=== PATIENT | male | born 1985 | race Caucasian/White ===

== ENCOUNTER 2016-05-19 07:35 | Emergency (ER) | payer BC ==
[2016-05-19 08:01] VITALS: BP 130/69
--- NOTE | 2016-05-19 08:11 | UC ---
FLU HPI - HPI Summary HPI Summary: 30 M presents with epigastric pain for a day. He had a GI bug as he describes since . He woke up last night with epigastric pain. He tried to vomit to make it better but there was no improvement. He also admits to diarrhea. He is very anxious on exam. He has no family history of cardiac disease. He has no medical conditions. He is a smoker. - History of Current Complaint Chief Complaint: UCGeneralIllness Stated Complaint: VOMITING/DIARRHEA Time Seen by Provider: 05/19/16 08:04 - Allergy/Home Medications Allergies/Adverse Reactions: Allergies Allergy/AdvReac Type Severity Reaction Status Date / Time Amoxicillin Allergy Severe Hives Verified 05/19/16 08:01 Penicillins Allergy Severe Hives Verified 05/19/16 08:01 PMH/Surg Hx/FS Hx/Imm Hx Endocrine History Of: Denies: Diabetes, Thyroid Disease Cardiovascular History Of: Denies: Cardiac Disorders, Hypertension Respiratory History Of: Denies: COPD, Asthma GI/ History Of: Denies: Ulcer - Surgical History Surgical History: Yes Surgery Procedure, Year, and Place: left leg reconstruction 2009, back surgery - Family History Known Family History: Negative: Cardiac Disease - Social History Alcohol Use: Weekly Substance Use Type: Marijuana Substance Use Comment - Amount & Last Used: occ usage Smoking Status (MU): Heavy Every Day Tobacco Smoker Type: Cigarettes Amount Used/How Often: 1 PPD Length of Time of Smoking/Using Tobacco: since age 19 Have You Smoked in the Last Year: Yes - Immunization History Most Recent Tetanus Shot: 2008 Review of Systems Constitutional: Negative ENT: Negative Respiratory: Negative Cardiovascular: Negative Gastrointestinal: Abdominal Pain - epigastric All Other Systems Reviewed And Are Negative: Yes Physical Exam Triage Information Reviewed: Yes Appearance: Well-Appearing - anxious Vital Signs: Initial Vital Signs Temp 98.4 F 05/19/16 07:54 Pulse 82 05/19/16 07:54 Resp 24 05/19/16 07:54 BP 130/69 05/19/16 07:54 Pulse Ox 100 05/19/16 07:54 Vital Signs Reviewed: Yes ENT: Positive: Normal ENT inspection, Pharynx normal, TMs normal Neck: Positive: Supple, Nontender, No Lymphadenopathy Respiratory: Positive: Chest non-tender, Lungs clear, Normal breath sounds Cardiovascular: Positive: RRR Abdomen Description: Positive: Soft, Other: - mild epigastric tenderness and to LUQ, no rebound tenderness, neg worley Bowel Sounds: Positive: Present Psychological: Positive: Other: - anxious Diagnostics - EKG Cardiac Rate: NL Cardiac Rhythm: Sinus: Normal Ectopy: None ST Segment: Normal Flu Course/Dx - Course Course Of Treatment: 30 M presents with epigastric pain since last night. has been vomiting due to "GI bug", pain is located more to left upper quadrant and neg worley so do not suspect gallbladder disease, patient is anxious on exam, EKG normal and only risk factor has is smoking. I reassuranced him that unlikely to be cardiac related pain. no blood in stool so do not suspect PUD, explained likely gastritis due to vomiting, offered medicaiton for vomiting and acid suppression but patient declined, patient understands and agrees with plan - Differential Dx/Diagnosis Differential Diagnosis/HQI/PQRI: Upper Respiratory Infection, Other - gall bladder disease, PUD, cardiac Provider Diagnoses: epigastric pain Discharge - Discharge Plan Condition: Good Disposition: HOME Patient Education Materials: Epigastric Pain (ED) Forms: *Work Release Referrals: No Primary Care Phys,NOPCP [Primary Care Provider] - [facility] [place] PHYSICIAN REFERRAL [Outside] Additional Instructions: Use tums for upset stomach Can use Tylenol every 6 hours for pain Establish care with primary care physician Return to ED if develop any new or worsening symptoms
[2016-05-19] MEDS ORDERED: Al Hydrox/Mg Hydrox/Simet LIQ* 30 ML UDC PO ONE (08:13)
[2016-05-19] MEDS ORDERED: Lidocaine 2% VISCOUS* 15 ML UDC PO ONE (08:13)
== END 2016-05-19 08:44 | disposition home or self-care (01) ==
LOC: UCEAST 07:35
DX: R10.13 Epigastric pain (principal); R19.7 Diarrhea, unspecified; Z88.0 Allergy status to penicillin; F12.90 Cannabis use, unspecified, uncomplicated; F17.210 Nicotine dependence, cigarettes, uncomplicated
CPT/HCPCS: 93005; 99212; A9270-GY; G0463

== ENCOUNTER 2017-07-28 04:06 | Emergency (ER) | payer BC ==
[2017-07-28] MEDS ORDERED: Morphine INJ* 4 MG/ML 1 ML CARPUJECT IV ONE (04:27)
[2017-07-28] MEDS ORDERED: Metoclopramide IV* 5 MG/ML 2 ML VIAL IV ONE (04:27)
[2017-07-28] MEDS ORDERED: Morphine INJ* 2 MG/ML 1 ML CARPUJECT ONE (04:48)
[2017-07-28] MEDS: NS 0.9% 1000 ML* 2,000 ML IV ONE ×2 (04:52→05:50)
[2017-07-28 05:07] LABS: Hematocrit 45 % (42-52); Hemoglobin 15.7 g/dl (14.0-18.0); Mean Corpuscular HGB Conc 35 g/dl (31-36); Mean Corpuscular Hemoglobin 31 pg (27-31); Mean Corpuscular Volume 88 fL (80-94); Mean Platelet Volume 9.8 um3 (7.4-10.4); Platelet Count 207 10^3/ul (150-450); Red Blood Count 5.11 10^6/ul (4.0-5.4); Red Cell Distribution Width 13 % (10.5-15); White Blood Count 10.3 10^3/ul (3.5-10.8)
[2017-07-28 05:08] LABS: ABS Basophils 0.1 10^3/ul (0-0.2); ABS Eosinophils 0.1 10^3/ul (0-0.6); ABS Lymphocytes 1.7 10^3/ul (1.0-4.8); ABS Monocytes 0.7 10^3/ul (0-0.8); ABS Neutrophils 7.7 10^3/ul (1.5-7.7)
[2017-07-28 05:10] LABS: EGFR Non-African American 97.3 (>60)
[2017-07-28] MEDS ORDERED: Potassium Chlor TAB* 20 MEQ TAB.ER PO ONE (05:19)
--- NOTE | 2017-07-28 05:53 | ED ---
Leander Verdugo Stephanie, scribed for Shelley Peralta MD on 07/28/17 at 0437 . Abdominal Pain/Male - HPI Summary HPI Summary: The pt is a 31 y/o M presenting to the ED with c/o abd pain that began at 23:30 tonight. Symptoms include N/V/D and diaphoresis. The pt states he has had an illness go through his house for the past week. He states the diarrhea began on 07/26/17 and is still present. - History of Current Complaint Chief Complaint: EDNauseaVomitDiarrh Stated Complaint: VOMITING Time Seen by Provider: 07/28/17 04:12 Hx Obtained From: Patient Onset/Duration: Gradual Onset, Lasting Days, Still Present Timing: Constant Severity Currently: Moderate Pain Intensity: 8 Pain Scale Used: 0-10 Numeric Location: Diffuse Radiates: No Aggravating Factor(s): Nothing Alleviating Factor(s): Nothing Associated Signs And Symptoms: Positive: Diaphoresis, Nausea, Vomiting, Diarrhea - Allergies/Home Medications Allergies/Adverse Reactions: Allergies Allergy/AdvReac Type Severity Reaction Status Date / Time MS Amoxicillin [Amoxicillin] Allergy Severe Hives Verified 07/28/17 04:51 MS Penicillins [Penicillins] Allergy Severe Hives Verified 07/28/17 04:51 PMH/Surg Hx/FS Hx/Imm Hx Endocrine/Hematology History: Denies: Hx Diabetes, Hx Thyroid Disease Cardiovascular History: Denies: Hx Hypertension Respiratory History: Denies: Hx Asthma, Hx Chronic Obstructive Pulmonary Disease (COPD) GI History: Denies: Hx Ulcer Sensory History: Denies: Hx Legally Blind EENT History: Denies: Hx Deafness - Surgical History Surgery Procedure, Year, and Place: left leg reconstruction 2009, back surgery Infectious Disease History: No Infectious Disease History: Denies: Hx Hepatitis, Hx Human Immunodeficiency Virus (HIV), Traveled Outside the [place] in Last 30 Days - Family History Known Family History: Negative: Cardiac Disease - Social History Occupation: Employed Part-time Lives: With Family Alcohol Use: Weekly Hx Substance Use: Yes Substance Use Type: Reports: Marijuana Substance Use Comment - Amount & Last Used: occ usage Hx Tobacco Use: Yes Smoking Status (MU): Heavy Every Day Tobacco Smoker Type: Cigarettes Amount Used/How Often: 1 PPD Length of Time of Smoking/Using Tobacco: since age 19 Have You Smoked in the Last Year: Yes Review of Systems Negative: Fever Positive: Abdominal Pain, Vomiting, Diarrhea Negative: Slurred Speech All Other Systems Reviewed And Are Negative: Yes Physical Exam - Summary Physical Exam Summary: VITAL SIGNS: Reviewed. GENERAL: Patient is a well-developed and nourished MALE who is lying comfortable in the stretcher. Patient is not in any acute respiratory distress. HEAD AND FACE: No signs of trauma. No ecchymosis, hematomas or skull depressions. No sinus tenderness. EYES: PERRLA, EOMI x 2, No injected conjunctiva, no nystagmus. EARS: Hearing grossly intact. Ear canals and tympanic membranes are within normal limits. MOUTH: Oropharynx within normal limits. NECK: Supple, trachea is midline, no adenopathy, no JVD, no carotid bruit, no c- spine tenderness, neck with full ROM. CHEST: Symmetric, no tenderness at palpation LUNGS: Clear to auscultation bilaterally. No wheezing or crackles. CVS: Regular rate and rhythm, S1 and S2 present, no murmurs or gallops appreciated. ABDOMEN: Soft, non-tender. No signs of distention. No rebound no guarding, and no masses palpated. Bowel sounds are normal. EXTREMITIES: FROM in all major joints, no edema, no cyanosis or clubbing. NEURO: Alert and oriented x 3. No acute neurological deficits. Speech is normal and follows commands. SKIN: Dry and warm Triage Information Reviewed: Yes Vital Signs On Initial Exam: Initial Vitals Temp Pulse Resp BP Pulse Ox 97.4 F 67 20 166/85 100 07/28/17 04:08 07/28/17 04:08 07/28/17 04:08 07/28/17 04:08 07/28/17 04:08 Vital Signs Reviewed: Yes Diagnostics - Vital Signs Vital Signs Temp Pulse Resp BP Pulse Ox 07/28/17 04:08 97.4 F 67 20 166/85 100 - Laboratory Result Diagrams: 07/28/17 04:35 07/28/17 04:35 Lab Statement: Any lab studies that have been ordered have been reviewed, and results considered in the medical decision making process. Re-Evaluation - Re-Evaluation First Eval Re-Evaluation Time: 05:34 Change: Improved - The pt states he feels better. Abdominal Pain Fem Course/Dx - Course Course Of Treatment: The pt is a 31 y/o M presenting to the ED with c/o abd pain that began at 23:30 tonight. Symptoms include N/V/D and diaphoresis. The pt states he has had an illness go through his house for the past week. He states the diarrhea began on 07/26/17 and is still present. Labs are unremarkable. The pt's symptoms are likely due to gastroenteritis. - Diagnoses Provider Diagnoses: Gastroenteritis Discharge - Sign-Out/Discharge Documenting (check all that apply): Discharge - Discharge Plan Condition: Stable Disposition: HOME Prescriptions: Metoclopramide TAB* [Reglan TAB*] 10 mg PO Q6H PRN #14 tab PRN Reason: Nausea/Vomiting Patient Education Materials: Gastroenteritis (ED) Referrals: [facility] [place] [facility]IAN REFERRAL [Outside] Additional Instructions: RETURN TO EMERGENCY DEPARTMENT FOR ANY NEW OR WORSENING SYMPTOMS The documentation as recorded by the Leander pan Stephanie accurately reflects the service I personally performed and the decisions made by me, Shelley Peralta MD.
[2017-07-28 05:54] LABS: ABS Nucleated RBC 0 10^3/ul; Eosinophil % 1.2 % (0-6); Lymphocyte % 16.9 % (25-47); Nucleated Red Blood Cells % 0.1
[2017-07-28 07:07] VITALS: BP 114/62
== END 2017-07-28 06:50 | disposition home or self-care (01) ==
LOC: ED 04:06
DX: K52.9 Noninfective gastroenteritis and colitis, unspecified (principal); F17.210 Nicotine dependence, cigarettes, uncomplicated
CPT/HCPCS: 36415; 80053; 82150; 83690; 85025; 86140; 96374; 96375; 99284; A9270-GY; J2270; J2765

== ENCOUNTER 2019-03-18 10:01 | Emergency (ER) | payer BC ==
[2019-03-18 10:24] VITALS: BP 128/85
--- NOTE | 2019-03-18 11:27 | UC ---
Hand/Wrist HPI - HPI Summary HPI Summary: Mr Combs comes in with about 2 days of bilateral knuckle pain. It happened a couple weeks ago and lasted a couple days and went away. It hurts to flex and extend his second and third MPJs of his bilateral hands. He denies any other medical problems or history. - History Of Current Complaint Chief Complaint: UCUpperExtremity Stated Complaint: HAND PAIN Time Seen by Provider: 03/18/19 11:07 Hx Obtained From: Patient Severity Initially: Mild Severity Currently: Mild Pain Intensity: 3 Character Of Pain: Dull, Aching, Stiffness Aggravating Factor(s): Movement Alleviating Factor(s): Nothing Associated Signs And Symptoms: Positive: Swelling, Redness - Allergies/Home Medications Allergies/Adverse Reactions: Allergies Allergy/AdvReac Type Severity Reaction Status Date / Time amoxicillin Allergy Hives Verified 03/18/19 10:24 Penicillins Allergy Hives Verified 03/18/19 10:24 Home Medications: Home Medications NK [No Home Medications Reported] 03/18/19 [History Confirmed 03/18/19] PMH/Surg Hx/FS Hx/Imm Hx Previously Healthy: Yes - Surgical History Surgical History: Yes Surgery Procedure, Year, and Place: left leg reconstruction 2009, back surgery - Family History Known Family History: Negative: Cardiac Disease - Social History Alcohol Use: Weekly Substance Use Type: Marijuana Substance Use Comment - Amount & Last Used: weekly Smoking Status (MU): Heavy Every Day Tobacco Smoker Type: Cigarettes Amount Used/How Often: 1 PPD Length of Time of Smoking/Using Tobacco: since age 19 Have You Smoked in the Last Year: Yes Household Exposure Type: Cigarettes - Immunization History Most Recent Tetanus Shot: 2008 Review of Systems All Other Systems Reviewed And Are Negative: Yes Constitutional: Positive: Negative Skin: Positive: Negative Motor: Positive: Decreased ROM Musculoskeletal: Positive: Arthralgia Physical Exam - Summary Physical Exam Summary: He is nontoxic in appearance with stable vital signs Triage Information Reviewed: Yes Appearance: Well-Appearing Vital Signs: Initial Vital Signs Temp 99.0 F 03/18/19 10:21 Pulse 67 03/18/19 10:21 Resp 18 03/18/19 10:21 BP 128/85 03/18/19 10:21 Pulse Ox 99 03/18/19 10:21 Vital Signs Reviewed: Yes Musculoskeletal Exam: Other - Discussed some mild swelling and erythema of his MPJs on his left worse than the right hand. Distal neurovascular motor completely intact and there is no passive range of motion tenderness distally. Neurological Exam: Normal Skin Exam: Normal Hand/Wrist Course/Dx - Course Course Of Treatment: He has some arthritis and it's unclear exactly what the source is. It's limited what I can do here but I recommended we draw blood for CBC, CRP, uric acid and Lyme titers at least. I then recommended follow-up with [facility] as he doesn't have PCP. At that point he says he has been to [facility] in the past but not for several years and wants to go there directly. At this point is refusing the blood draw and planning on going over to [facility]. - Differential Dx/Diagnosis Provider Diagnosis: Arthritis Discharge ED - Sign-Out/Discharge Documenting (check all that apply): Patient Departure All imaging exams completed and their final reports reviewed: No Studies - Discharge Plan Condition: Stable Disposition: HOME Patient Education Materials: Arthritis (ED) Referrals: No Primary Care Phys,NOPCP [Primary Care Provider] - - Billing Disposition and Condition Condition: STABLE Disposition: Home
== END 2019-03-18 11:35 | disposition home or self-care (01) ==
LOC: UCEAST 10:01
DX: M13.842 Other specified arthritis, left hand (principal); M13.841 Other specified arthritis, right hand; F17.210 Nicotine dependence, cigarettes, uncomplicated; Z88.0 Allergy status to penicillin
CPT/HCPCS: 99211; G0463